=== PATIENT | male | born 1990 | race African-American/Black ===

== ENCOUNTER 2018-01-12 16:42 | Emergency (ER) | payer SELFPAY ==
[~2018-01-12] VITALS: Ht 188 cm; Wt 77.1 kg
[2018-01-12 17:09] VITALS: BP 139/68
[2018-01-12] MEDS ORDERED: IBUPROFEN 800 MG TAB PO ONE (19:30)
[2018-01-12] MEDS ORDERED: HYDROcodone-ACET 7.5/325MG TAB PO ONE (19:30)
== END 2018-01-12 20:30 | disposition home or self-care (01) ==
LOC: ER 17:00
DX: S82.891A Other fracture of right lower leg, initial encounter for closed fracture (principal); X58.XXXA Exposure to other specified factors, initial encounter; Y93.67 Activity, basketball; Y99.8 Other external cause status; Y92.89 Other specified places as the place of occurrence of the external cause
CPT/HCPCS: 29515; 73610; 73630